=== PATIENT | female | born 1965 | race Caucasian/White ===

== ENCOUNTER 2016-05-01 14:04 | Day surgery (SDC) | payer BC ==
[~2016-05-01 14:04] MED LIST: Kenalog-40 IM ONE; Lactated Ringers IV ONE; Sensorcaine 0.25% 10 ML IJ ONE
[2016-05-01] MEDS ORDERED: DIPRIVAN 200 MG/20 ML IV ONE (16:35)
--- NOTE | 2016-05-01 16:35 | XRAY ---
9 seconds of fluoroscopy was used in surgery for a left MBB L2-L5.
--- NOTE | 2016-05-01 16:38 | XRAY ---
Indication: Left L2-L5 MBB. Intraoperative fluoroscopy was provided for 9 seconds. Single digital spot image submitted for interpretation demonstrates 4 posterior spinal needles with the tips projecting adjacent to the left L3-S1 superior facets. Correlate with intraoperative findings/report.
== END 2016-05-01 15:40 | disposition home or self-care (01) ==
LOC: SDC-PAIN 14:04
PROVIDERS: ATTEND Pain Medicine Interventional Pain Medicine
DX: M48.06 Spinal stenosis, lumbar region (principal); M54.16 Radiculopathy, lumbar region; M47.26 Other spondylosis with radiculopathy, lumbar region; Z79.891 Long term (current) use of opiate analgesic
CPT/HCPCS: 64493; 64494; 64495; 72020; 77003; J2704; J3301